=== PATIENT | male | born 1965 | race Caucasian/White ===

== ENCOUNTER 2023-05-03 20:06 | Inpatient (IN) | payer SELFPAY ==
[2023-05-03] VITALS (8 sets, daily range): BP systolic 164–191; BP diastolic 113–127; PULSE 87–100; RESP 17–24; TEMP 36.7–36.8; O2SAT 92–96; BMI 28.7; BMI 31.2
--- NOTE | 2023-05-03 20:28 | ECG_ITS ---
APPROVED REPORT Exam: Resting ECG HR:92 bpm ECG Measurements Heart Rate 92 AXES WV 172 P 55 QRSd 188 QRS 0 QT 424 T 156 QTc 474 Conclusion SINUS RHYTHM LEFT BUNDLE BRANCH BLOCK [120+ ms QRS DURATION, 80+ ms Q/S IN V1/V2, 85+ ms R IN I/aVL/V5/V6] ABNORMAL ECG UNCONFIRMED REPORT Electronically signed by : Evert Colbert MD 05/06/2023 16:50:49
--- NOTE | 2023-05-03 21:26 | XR_ITS ---
PROCEDURE INFORMATION: Exam: XR Chest Exam date and time: 05/03/2023 9:31 PM Age: 57 years old Clinical indication: Shortness of breath; Additional info: Dyspnea TECHNIQUE: Imaging protocol: Radiologic exam of the chest. Views: 1 view. COMPARISON: No relevant prior studies available. FINDINGS: Lungs: Hazy interstitial opacities in both lungs could reflect interstitial edema versus interstitial pneumonia. Granulomatous change. Pleural spaces: Unremarkable. No pleural effusion. No pneumothorax. Heart/Mediastinum: Cardiomegaly. Bones/joints: Unremarkable. IMPRESSION: Interstitial opacities bilaterally could reflect edema versus pneumonia. Correlate clinically.
--- NOTE | 2023-05-03 21:31 | ED_ITS ---
Discharge Plan Disposition Patient Disposition: Admitted Referrals Follow up/Referrals: Provider,Referral, [Primary Care Provider] - See instructions Clinical Impressions Clinical Impression: Heart failure with reduced ejection fraction, Exertional dyspnea, Left bundle branch block (LBBB), Non-ST elevation IL (NSTEMI) Discharge ED Provider: Chiara Lance HPI General Chief Complaint: Shortness of Breath/Dyspnea Stated Complaint: janel, SOA Time Seen by Provider: 05/03/23 21:09 Mode of Arrival: Ambulatory Source of Information: Patient Limitations: No Limitations Description of Symptoms (Recalled from ER Triage Doc. by RN): Pt ambulatory to ED with c/o SOA X4 days. Pt states he started having cold symptoms 1 week ago and has been taking Robitussin at home. Pt states he has not smoked in 8 days due to resp symptoms. Pt also reports he has not been taking his Lisinopril 20mg for 3 weeks now. Pt reports worsening SOA while laying flat. Pt also reports fall 5 days ago. Pt denies chest pain History of Present Illness HPI narrative: Patient is a 57-year-old man who presents today with shortness of breath and w hat he initially described as a cold. However after further questioning he states he does not feel sick he just feels very fatigued and short of breath. Shortness of breath has been ongoing for several months. He does have a history of chronic smoking has a 40+ pack year history of smoking and stop smoking 8 days ago. Additionally he has had significant exertional dyspnea and chest pain especially over the last few weeks. States that any type of exertion specifically sex that he gets extremely short of breath and severe chest pain most recently within the last month this happened where he had chest pain all night long after having sex. States if he had to walk right now he would have c hest pain and is still exertional in the sense that every time he exerts himself right now he has chest pain and it is relieved with any type of rest. Has never had a left heart cath unsure as to whether has been diagnosed with any heart disease in the past. Never has been diagnosed with COPD however he does not frequently go to the hospital. Sleeps on 3 pillows states that shortness of breath has significantly worsened over the last several days. He denies any fevers or chills. Denies any significant increase in sputum production does have some wheezing but that is chronic. No significant increase in lower extremity edema however he does have significant worsening shortness of breath at night. Related Data Allergies Allergy/AdvReac Type Severity Reaction Status Date / Time No Known Allergies Allergy Verified 05/03/23 21:29 [facility] Disclaimer: The information contained in this section may have been updated after the p atient was seen, as this information can be updated by other users. Social History Smoking Status: Former smoker alcohol intake: never current occupational status: other Travel in the last 8 weeks: None ROS Obtained: Yes All systems reviewed & no additional complaints except as documented Physical Exam General General appearance: alert Respiratory Respiratory exam: Present other (Patient does have some expiratory wheezing no respiratory distress no focal adventitious lung sounds oxygen saturations normal on room air) Cardiovascular Cardiovascular exam: Present regular rate, normal rhythm and other (No significa nt lower extremity edema) Abdominal Exam Abdominal exam: Present soft; Absent distention or tenderness Neurological Exam Neurological exam: Present alert HEART Score HEART Score HEART Score assessment performed?: Yes History (anamnesis): Highly suspicious ECG: Non-specific disturbance Age: 45-65 years Risk factors: 1-2 risk factors Troponin: 1-3x normal limit HEART Score: 6 Procedures Miscellaneous Procedure Procedure Performed: Limited cardiac ultrasound Indication: Chest pain Identified structures: The heart was visualized in the parasternal long axis, parastenal short axis, apical four chamber and subxyphiod views. The IVC was visualized in the short axis and long axis at its entry into the right atrium. Findings: There is discordant contraction of the right and left ventricle consistent with a left bundle branch block, there is significant akinesis and hypokinesis of the septum and there is moderate to severely depressed left ventricular ejection fraction based on the point separation and gross visualization, there is no pericardial effusion. Impression: Moderate to severely depressed LVEF discordant systolic contractions consistent with a bundle branch block, no significant right heart strain, no pericardial effusion Images were saved to permanent archive The study was technically adequate CPT: 72790-30 This study was performed by me, and I personally interpreted all images/videos. Based on my clinical judgement, these images were adequate and did not n ecessitate further imaging. Limited lung ultrasound A focused ultrasound exam of the pleural spaces was performed to evaluate for pneumothorax, pulmonary edema, pleural effusion and/or consolidation. The ultrasound was performed with the following indications, as noted in the H&P: Dyspnea Identified structures: Right and left thoracic cavities were examined. Findings: Normal lung sliding bilaterally there are no B-lines throughout no pleural effusions throughout there is no evidence of consolidation throughout Impression: No evidence of pneumothorax pleural effusions B-lines or consolidation Images were saved to permanent archive The study was technically adequate CPT 50771-02 This study was performed by me, and I personally interpreted all images/videos. Based on my clinical judgement, these images were adequate and did not necessitate further imaging. Critical Care Critical Care Time Critical Care Time: Yes Attestation: On 05/03/23, the high probability of a clinically significant, sudden or life threatening deterioration of the following system(s) required my full and direct attention, intervention and personal management. The time I documented below is in addition to time spent performing reported procedures but includes the following listed in this critical care notation. Total Time Total Critical Care Time: 35 Medical Decision Making Yves Inquiry Pt receiving controlled substance: Yes Yves was queried for this patient: No Risks and benefits of using a controlled substance: were not discussed with pt by me Vital Signs Vital Signs: 05/03/23 20:31 Temperature 98.3 F Temperature Source Oral Pulse Rate [Left Radial] 94 H Respiratory Rate 17 Blood Pressure [Right Arm] 191/127 H Blood Pressure Mean [Right Arm] 148 Blood Pressure Source [Right Arm] Automatic Cuff Blood Pressure Position [Right Arm] Sitting 02 Sat by Pulse Oximetry 95 Oxygen Delivery Method Room Air Lab Data Lab results reviewed: Yes I reviewed the patient's lab results. Labs: Lab Results 05/03/23 20:33: WBC 14.3 H, RBC 4.77, Hgb 15.8, Hct 44.0, MCV 92.2, MCH 33.2 H, MCHC 36.0 H, RDW 13.1, Plt Count 282, MPV 9.0, Neut % (Auto) 74.5, Lymph % (Auto) 18.6, [place] % (Auto) 5.2, Eos % (Auto) 0.8, Baso % (Auto) 0.9, Neut # (Auto) 10.7 H, Lymph # (Auto) 2.7, [place] # (Auto) 0.7, Eos # (Auto) 0.1, Baso # (Auto) 0.1, PT 10.4, INR 0.96, APTT 28.9, Sodium 139, Potassium 3.4 L, Chloride 101, Carbon Dioxide 29, Anion Gap 12.4, BUN 10, Creatinine 0.70, Estimated Creat Clear 153, Estimated GFR 117, Est GFR ( Amer) 142, Glucose 108 H, Calcium 8.9, Magnesium 2.0, Total Bilirubin 1.0, AST 37, ALT 25, Alkaline Phosphatase 95, Troponin I 0.04 H, NT-Pro-B Natriuret Pep 4630 H, Total Protein 7.4, Albumin 4.1, Globulin 3.3 H, Albumin/Globulin Ratio 1.2 05/03/23 21:30: SARS-CoV-2 (PCR) Not detected, Influenza A Untype (PCR) Not detected, Influenza Type B (PCR) Not detected 05/03/23 20:33 05/03/23 20:33 Response Orders (Tests/Meds): ORDERS Category Date Time Status CXR --portable [XR chest portable] Stat Exams 05/03/23 21:26 Completed POCUS Point of Care (ER Only) Stat Exams 05/03/23 21:13 Taken BNP [Brain Natriuretic Peptide] Stat Lab 05/03/23 20:33 Completed CBC w/Auto Diff [Complete Blood Count Auto Diff] Stat Lab 05/03/23 20:33 Completed CMP [Comprehensive Metabolic Panel] Stat Lab 05/03/23 20:33 Completed Magnesium Stat Lab 05/03/23 20:33 Completed PT/PTT Stat Lab 05/03/23 20:33 Completed Rapid PCR Covid and Flu A/B Stat Lab 05/03/23 21:30 Completed Trop I [Troponin I] Stat Lab 05/03/23 20:33 Completed Troponin I Q3H Lab 05/04/23 00:30 Ordered Troponin I Q3H Lab 05/04/23 03:30 Ordered ECG initial [place] Stat Y 05/03/23 20:28 Completed MDM Narrative Medical Decision Narrative: Patient is a 57-year-old male presents today with exertional dyspnea and chest pain currently no chest pain this has been ongoing over the last month. Seems as if he may have had an episode about a month ago when he was having sex and has had significant chest pain with exertion since that time. Bedside ultrasound does demonstrate significant depression and his EF and I am concerned he may have had a significant IL several months ago but he may have ongoing critical stenosis given his exertional symptoms. EKG was performed which I personally interpreted which shows a left bundle branch block negative Sgarbossa's criteria however there is discordant ST elevation of 5 mm. O therwise he is in sinus rhythm no other significant conduction abnormalities noted given the fact that patient does not have any ongoing chest pain at the moment will not activate the [employer]. However I am highly suspicious that he has ongoing critical stenotic lesions. I will discuss the case with cardiology after his initial workup is complete. He certainly has some overlap of respiratory symptoms as well and initially came in complaining that he had a cold but this seems to be chronic and cardiac in nature we will hold off on treating him for COPD exacerbation at the moment. Reassessment patient stable still no chest pain Trope mildly elevated this is consistent with an NSTEMI at this point. Chest x-ray performed I personally interpreted shows bibasilar edema. Patient will be admitted for further evaluation treatment cardiology consultation tomorrow likely heart cath.
[2023-05-03 21:40] LABS: Basophils # 0.1 K/mm3 (0-0.2); Basophils % 0.9 % (0.1-2.0); Eosinophils # 0.1 K/mm3 (0.0-0.4); Eosinophils % 0.8 % (0.1-12.0); Hemoglobin 15.8 g/dL (14.1-18.0); Lymphocytes # 2.7 K/mm3 (0.7-4.5); Lymphocytes % 18.6 % (10-50); Mean Corpuscular Hemoglobin 33.2 pg (27.0-31.2); Mean Corpuscular Volume 92.2 fl (80-94); Monocytes # 0.7 K/mm3 (0.1-1.0); Monocytes % 5.2 % (1.7-9.3); Neutrophils # 10.7 K/mm3 (1.8-7.8); Neutrophils % 74.5 % (37.0-80.0); Platelet Count 282 K/mm3 (142-424); Red Blood Count 4.77 M/mm3 (4.60-6.20); Red Cell Distribution Width 13.1 % (11.5-17.5); White Blood Count 14.3 K/mm3 (4.8-10.8)
[2023-05-03 21:42] LABS: Alanine Aminotransferase 25 U/L (12-78); Albumin Level 4.1 g/dl (3.5-5.0); Albumin/Globulin Ratio 1.2 (1.1-1.8); Alkaline Phosphatase 95 U/L (38-126); Anion Gap 12.4 mEq/L (5-15); Aspartate Amino Transferase 37 U/L (17-59); Blood Urea Nitrogen 10 mg/dl (9-20); Calcium 8.9 mg/dl (8.4-10.2); Carbon Dioxide 29 mmol/L (22.0-30.0); Chloride 101 mmol/L (98-107); Creatinine Clearance Estimated 153 mL/min (50-200); Estimated Glomerular Filt Rate 117 ml/min (>60); GFR (African American) 142 ML/MIN (>60); Globulin 3.3 g/dL (1.3-3.2); Glucose 108 mg/dl (74-100); Potassium 3.4 mmoL/L (3.5-5.1); Sodium 139 mmol/L (136-145); Total Protein,Serum 7.4 g/dl (6.3-8.2)
[2023-05-03 21:43] LABS: Coronavirus 19, PCR Not Detected (NotDetected); Influenza A, PCR Not Detected (NotDetected); Influenza B, PCR Not Detected (NotDetected)
[2023-05-03 21:44] LABS: Activated Partial Thrombo Time 28.9 seconds (22.8-30.6); INR 0.96 (0.9-1.1); Prothrombin Time 10.4 seconds (10.1-12.5)
[2023-05-03 21:54] LABS: NT Pro Brain Natriuretic Pep. 4630 pg/mL (0-125); Troponin I 0.04 ng/ml (0.00-0.034)
--- NOTE | 2023-05-03 21:58 | PC.NURSE ---
Pt reports not being able to get his Lisinopril 20mg PO daily prescription filled due to it being and recently moving from [place].
--- NOTE | 2023-05-03 22:35 | P.HP_ITS ---
History of Present Illness *Admission Date: 05/03/23 *Reason for visit:: CP/SOB *History of present illness: This is a 57-year-old man with significant PMHx of HTN, HLD, chronic smoker with greater than 3packs per days who presented today with shortness of breath. Patient initially though was cold. However, he decided to come after he feels sicker snd very fatigued and short of breath, that could not tolerating being flat in bed. Reported that shortness of breath has been ongoing for several months. Additionally he has had chest pain and pressure over the last few weeks, that radiated to his neck, that started after sex and last all night long. After this, he reported exertional dyspnea and CP that release on rest. He denies any fevers or chills. Denies any significant increase in sputum production does have some wheezing but that is chronic. No significant increase in lower extremity edema however he does have significant worsening shortness of breath at night. Admitted for further wotk up and management. [facility] Disclaimer: The information contained in this section may have been updated after the patient was seen, as this information can be updated by other users. Medical History (Updated 05/03/23 @ 23:59 by Ricki Zaman APRN) Hypertension Family History (Updated 05/03/23 @ 23:41 by Deidre Anne RN) Family history of cancer Family history of hypertension Social History (Updated 05/03/23 @ 23:43 by Deidre Anne RN) Smoking Status: Former smoker alcohol intake: never current occupational status: other Travel in the last 8 weeks: None Review of Systems Review of Systems Review of systems:: pertinent systems reviewed and negative unless documented below Meds Home Medications and Allergies Home Medications Medication Instructions Recorded Confirmed Type lisinopril 20 mg tablet 20 mg PO BID 05/03/23 05/03/23 History New Prescriptions to Start Prescriptions: Allergies Allergy/AdvReac Type Severity Reaction Status Date / Time No Known Allergies Allergy Verified 05/03/23 21:29 Exam Data for Last 24 hours Vital signs and Labs for Last 24 Hours: Temp Pulse Resp BP Pulse Ox O2 Del Method 98.3 F 94 H 17 191/127 H 95 Room Air 05/03/23 20:31 05/03/23 20:31 05/03/23 20:31 05/03/23 20:31 05/03/23 20:31 05/03/23 20:31 Laboratory Results - last 24 hr 05/03/23 20:33: WBC 14.3 H, RBC 4.77, Hgb 15.8, Hct 44.0, MCV 92.2, MCH 33.2 H, MCHC 36.0 H, RDW 13.1, Plt Count 282, MPV 9.0, Neut % (Auto) 74.5, Lymph % (Auto) 18.6, [place] % (Auto) 5.2, Eos % (Auto) 0.8, Baso % (Auto) 0.9, Neut # (Auto) 10.7 H, Lymph # (Auto) 2.7, [place] # (Auto) 0.7, Eos # (Auto) 0.1, Baso # (Auto) 0.1, PT 10.4, INR 0.96, APTT 28.9, Sodium 139, Potassium 3.4 L, Chloride 101, Carbon Dioxide 29, Anion Gap 12.4, BUN 10, Creatinine 0.70, Estimated Creat Clear 153, Estimated GFR 117, Est GFR ( Amer) 142, Glucose 108 H, Calcium 8.9, Magnesium 2.0, Total Bilirubin 1.0, AST 37, ALT 25, Alkaline Phosphatase 95, Troponin I 0.04 H, NT-Pro-B Natriuret Pep 4630 H, Total Protein 7.4, Albumin 4.1, Globulin 3.3 H, Albumin/Globulin Ratio 1.2 05/03/23 21:30: SARS-CoV-2 (PCR) Not detected, Influenza A Untype (PCR) Not detected, Influenza Type B (PCR) Not detected I & O for Last 24 hours: Intake & Output 04/30/23 05/01/23 05/02/23 05/03/23 23:59 23:59 23:59 23:59 Weight 90.718 kg Constitutional Constitutional: mild distress and cooperative *Routine HEENT Exam Head: Present normocephalic and atraumatic Eye: Present EOMI, PERRL and normal accommodation ENT: Present mucous membranes moist *Routine Neck Exam Neck: Present supple and full ROM *Routine Respiratory Exam Respiratory: Present prolonged expiratory phase, wheezes, diminished air movement, normal respiratory effort and symmetric chest movement *Routine Cardiovascular Exam Cardiovascular: Present RRR, Normal S1 and Normal S2 *Routine Abdominal Exam Abdominal: Present soft and normoactive bowel sounds; Absent organomegaly *Routine Rectal Exam Rectal:: deferred *Routine Genitalia Exam Genitalia:: deferred *Routine Extremities Exam Extremities: Present full ROM and pulses intact; Absent cyanosis, clubbing or edema *Routine Skin Exam Skin: Present intact, dry, warm and rash *Routine Neurological Exam Neurological: Present alert, oriented X3, normal reflexes, moving all extremities and normal speech Routine Psychiatric Exam Psychiatric: Present normal thought process, cooperative and good judgment H&P: Result Imaging and Cardiology EKG: Status: image reviewed by me and Preliminary report Chest x-ray: Status: image reviewed by me, Preliminary report and final report Assessment and Plan *Assessment and plan (1) Non-ST elevation IN (NSTEMI): Status: Acute Category: Medical Code(s): I21.4 - Non-ST elevation (NSTEMI) myocardial infarction (2) Exertional dyspnea: Status: Acute Category: Medical Code(s): R06.09 - Other forms of dyspnea (3) Left bundle branch block (LBBB): Status: Acute Category: Medical Code(s): I44.7 - Left bundle-branch block, unspecified (4) Hypokalemia: Status: Acute Category: Medical Code(s): E87.6 - Hypokalemia (5) Heart failure with reduced ejection fraction: Status: Acute Category: Medical Code(s): I50.20 - Unspecified systolic (congestive) heart failure (6) Hypertension: Status: Acute Qualifiers: Hypertension type: unspecified Qualified Code(s): I10 - Essential (primary) hypertension Category: Medical Code(s): I10 - Essential (primary) hypertension (7) Very heavy cigarette smoker (40 or more per day): Status: Acute Category: Social Hx Code(s): F17.210 - Nicotine dependence, cigarettes, uncomplicated Plan 57-year-old man with significant PMHx of HTN, HLD, chronic smoker with greater than 3packs per days who presented today with shortness of breath. Patient initially though was cold. However, he decided to come after he feels sicker snd very fatigued and short of breath, that could not tolerating being flat in bed. furthermore started with Chest pain that appears on exertion and release on rest. On arrival patient hemodinamically stable. Hypertensive. denies chest pain. moderate SOB. CXR obtained. Concerning for pulmonary edema vs PNA. WBC slightly elevated. Chemistry slight hypokalemia. elevated troponin. EKG showed left BBB. no acute ischemia. ED provider performed bedside US and reduced EF is suspected. Findings discussed with ER for admission. Plan as follow: -Elevated troponin to rule out non-STEMI, or current acute coronary syndrome: Patient presented with left bundle branch block suspected old infarct. Unknown baseline Admit patient for cardiac telemetry Cardiac consult Serial troponin Monitor for chest pain. Nitro sublingual as needed Oxygen as needed to maximize O2 saturation Aspirin 325 given start the statin -Dyspnea, suspected heart failure with reduced ejection fraction: Also may need PFT for COPD definitive diagnosis: Bedside ultrasound done at the ER Elevated BNP Chest x-ray concerning for pulmonary edema versus pneumonia. Imaging reviewed Will give a one-time Lasix 80 mg IV Will start doxycycline and p.o. 100 mg twice daily Monitor daily CBC Sputum ordered -Hypokalemia. Mild: Replace potassium 40 mEq oral. Monitor for arrhythmia Repeat CMP in the morning Watch for another electrolyte imbalance -Hypertension. Uncontrolled Patient states that he ran out of lisinopril about a month ago. Presented with hypertension Will resume lisinopril 20 mg daily Continue monitor per unit protocol Obtain UA to assess proteinuria -*Current heavy smoker: Patient states he quit 8 days ago. Encourage maintain off smoking. At this time refusing nicotine patch. Ordered for as needed -Lovenox for DVT prophylaxis. Protonix for GI bleed and GERD Full code Rounded on patient after nurse practitioner. Personally examined and interviewed patient. Agree with exam findings and care plan as documented.
[2023-05-04] VITALS (8 sets, daily range): BP systolic 134–157; BP diastolic 80–109; PULSE 70–100; RESP 16–19; TEMP 36.3–36.7; O2SAT 95–98; BMI 30.1
[2023-05-04] MEDS: DOXYCYCLINE HYCL 100 MG TABLET PO ×3 (00:32→22:12)
[2023-05-04] MEDS: LISINOPRIL 20MG TABLET 20 MG PO (00:32)
[2023-05-04] MEDS: POTASSIUM CHLORIDE 20MEQ TAB 40 MEQ PO (00:32)
[2023-05-04] MEDS: ASPIRIN 325MG TABLET 325 MG PO (00:32)
[2023-05-04] MEDS: FUROSEMIDE 100MG/10ML VIAL 80 MG IV (00:33)
[2023-05-04 00:45] LABS: Microscopic, Urine URINE MICROSCOPIC (MICROSCOPIC)
[2023-05-04 00:46] LABS: Appearance,Urine CLEAR (Clear); Blood, Urine Negative (Negative); Color,Urine DARK YELLOW (Yellow); Glucose,Urine (UA) Negative (Negative); Ketones,Urine TRACE (Negative); Leukocyte Esterase,Urine Negative (Negative); Nitrate,Urine Negative (Negative); PH,Urine 6.5 (5.0-8.5); Protein,Urine 1+ (Negative); Specific Gravity, Urine 1.025 (1.005-1.030)
[2023-05-04 00:47] LABS: Troponin I 0.03 ng/ml (0.00-0.034)
[2023-05-04 00:49] LABS: Bilirubin,Urine 1+ (Negative)
[2023-05-04 01:03] LABS: Bacteria,Urine Trace /lpf; Mucus,Urine Trace /lpf; Squamous Epithelial Cell,Urine Occasional #/hpf (0-5); WBC,Urine Occasional #/hpf (0-3)
[2023-05-04 03:55] LABS: Troponin I 0.04 ng/ml (0.00-0.034)
[2023-05-04 07:42] LABS: Alanine Aminotransferase 24 U/L (12-78); Albumin/Globulin Ratio 1.3 (1.1-1.8); Alkaline Phosphatase 89 U/L (38-126); Anion Gap 13.4 mEq/L (5-15); Aspartate Amino Transferase 33 U/L (17-59); Bilirubin,Total 1.1 mg/dl (0.2-1.3); Blood Urea Nitrogen 12 mg/dl (9-20); Calcium 8.7 mg/dl (8.4-10.2); Carbon Dioxide 28 mmol/L (22.0-30.0); Chloride 100 mmol/L (98-107); Creatinine Clearance Estimated 130 mL/min (50-200); Estimated Glomerular Filt Rate 88 ml/min (>60); GFR (African American) 106 ML/MIN (>60); Globulin 3.1 g/dL (1.3-3.2); Glucose 103 mg/dl (74-100); Magnesium 1.8 mg/dl (1.6-2.3); Potassium 3.4 mmoL/L (3.5-5.1); Sodium 138 mmol/L (136-145); Total Protein,Serum 7.1 g/dl (6.3-8.2)
[2023-05-04 07:46] LABS: Basophils # 0.1 K/mm3 (0-0.2); Basophils % 0.9 % (0.1-2.0); Eosinophils # 0.1 K/mm3 (0.0-0.4); Eosinophils % 0.3 % (0.1-12.0); Hematocrit 43.9 % (42.0-52.0); Hemoglobin 15.1 g/dL (14.1-18.0); Lymphocytes # 3.3 K/mm3 (0.7-4.5); Lymphocytes % 22.9 % (10-50); Mean Corpuscular HGB Conc 34.4 g/dL (31.8-35.4); Mean Platelet Volume 8.5 fl (7.4-10.4); Monocytes # 0.7 K/mm3 (0.1-1.0); Monocytes % 4.9 % (1.7-9.3); Neutrophils # 10.3 K/mm3 (1.8-7.8); Platelet Count 291 K/mm3 (142-424); Red Blood Count 4.72 M/mm3 (4.60-6.20); White Blood Count 14.4 K/mm3 (4.8-10.8)
[2023-05-04] MEDS: ENOXAPARIN 40MG/0.4ML SYRINGE 40 MG SQ (09:01)
[2023-05-04] MEDS: ASPIRIN EC 81MG TABLET 81 MG PO (09:01)
[2023-05-04] MEDS: PANTOPRAZOLE 40MG TABLET 40 MG PO (09:02)
[2023-05-04] MEDS: IRBESARTAN 300MG TABLET 300 MG PO (09:02)
--- NOTE | 2023-05-04 09:39 | EXP.ACUTE.PN ---
Subjective *Date: 05/04/23 *Time: 11:08 Interval history: Patient on room air this morning. Feeling her. Denies any chest pain today. Has responded well to diuresis, -700 cc since admission. Afebrile. On bedside during exam Medical Exam Vital signs and Labs for Last 24 Hours: Vital Signs Temp Pulse Pulse Resp BP BP Pulse Ox 05/04/23 08:20 05/04/23 09:20 05/04/23 08:00 97.8 F 88 19 155/97 H 96 05/04/23 07:00 05/04/23 04:00 98.0 F 91 H 18 139/80 95 05/04/23 04:00 80 05/03/23 23:31 100 H 05/04/23 05:00 05/04/23 03:00 05/04/23 01:00 05/03/23 23:43 98.1 F 96 H 24 173/115 H 96 05/03/23 23:00 05/04/23 00:07 05/03/23 22:45 98.2 F 88 24 164/113 H 05/03/23 22:30 89 20 164/113 H 92 L 05/03/23 22:00 95 H 19 168/118 H 94 L 05/03/23 21:30 87 24 172/118 H 95 05/03/23 21:01 95 H 19 178/125 H 94 L 05/03/23 20:31 98.3 F 94 H 17 191/127 H 95 O2 Del Method 05/04/23 08:20 Room Air 05/04/23 09:20 Room Air 05/04/23 08:00 Room Air 05/04/23 07:00 Room Air 05/04/23 04:00 Room Air 05/04/23 04:00 05/03/23 23:31 05/04/23 05:00 Room Air 05/04/23 03:00 Room Air 05/04/23 01:00 Room Air 05/03/23 23:43 Room Air 05/03/23 23:00 Room Air 05/04/23 00:07 Room Air 05/03/23 22:45 Room Air 05/03/23 22:30 05/03/23 22:00 05/03/23 21:30 05/03/23 21:01 05/03/23 20:31 Room Air Intake and Output 05/03/23 05/04/23 05/04/23 23:59 07:59 15:59 Intake Total 220 / 640 420 / 640 Output Total 1325 / 1325 0 / 1325 Balance -1105 / -685 420 / -685 Intake: Intake, Oral Amount 220 / 640 420 / 640 Output: Output, Urine Amount 1325 / 1325 0 / 1325 Other: Number of Voids 0 Weight 98.94 kg 95.51 kg Patient Weight 05/04/23 23:59 Weight 95.51 kg Laboratory Results - last 24 hr 05/03/23 20:33: WBC 14.3 H, RBC 4.77, Hgb 15.8, Hct 44.0, MCV 92.2, MCH 33.2 H, MCHC 36.0 H, RDW 13.1, Plt Count 282, MPV 9.0, Neut % (Auto) 74.5, Lymph % (Auto) 18.6, [place] % (Auto) 5.2, Eos % (Auto) 0.8, Baso % (Auto) 0.9, Neut # (Auto) 10.7 H, Lymph # (Auto) 2.7, [place] # (Auto) 0.7, Eos # (Auto) 0.1, Baso # (Auto) 0.1, PT 10.4, INR 0.96, APTT 28.9, Sodium 139, Potassium 3.4 L, Chloride 101, Carbon Dioxide 29, Anion Gap 12.4, BUN 10, Creatinine 0.70, Estimated Creat Clear 153, Estimated GFR 117, Est GFR ( Amer) 142, Glucose 108 H, Calcium 8.9, Magnesium 2.0, Total Bilirubin 1.0, AST 37, ALT 25, Alkaline Phosphatase 95, Troponin I 0.04 H, NT-Pro-B Natriuret Pep 4630 H, Total Protein 7.4, Albumin 4.1, Globulin 3.3 H, Albumin/Globulin Ratio 1.2 05/03/23 21:30: SARS-CoV-2 (PCR) Not detected, Influenza A Untype (PCR) Not detected, Influenza Type B (PCR) Not detected 05/04/23 00:15: Troponin I 0.03 05/04/23 00:40: Urine Color Dark yellow, Urine Appearance Clear, Urine pH 6.5, Ur Specific [place] 1.025, Urine Protein 1+, Urine Glucose (UA) Negative, Urine Ketones Trace, Urine Blood Negative, Urine Nitrate Negative, Urine Bilirubin 1+ A, Urine Urobilinogen 4.0, Ur Leukocyte Esterase Negative, Urine RBC 3-5, Urine WBC Occasional, Ur Squamous Epith Cells Occasional, Urine Bacteria Trace, Urine Mucus Trace 05/04/23 03:25: Troponin I 0.04 H 05/04/23 06:19: WBC 14.4 H, RBC 4.72, Hgb 15.1, Hct 43.9, MCV 93.0, MCH 32.0 H, MCHC 34.4, RDW 13.0, Plt Count 291, MPV 8.5, Neut % (Auto) 71.0, Lymph % (Auto) 22.9, [place] % (Auto) 4.9, Eos % (Auto) 0.3, Baso % (Auto) 0.9, Neut # (Auto) 10.3 H, Lymph # (Auto) 3.3, [place] # (Auto) 0.7, Eos # (Auto) 0.1, Baso # (Auto) 0.1, Sodium 138, Potassium 3.4 L, Chloride 100, Carbon Dioxide 28, Anion Gap 13.4, BUN 12, Creatinine 0.90 D, Estimated Creat Clear 130, Estimated GFR 88, Est GFR ( Amer) 106 D, Glucose 103 H, Calcium 8.7, Magnesium 1.8, Total Bilirubin 1.1, AST 33, ALT 24, Alkaline Phosphatase 89, Total Protein 7.1, Albumin 4.0, Globulin 3.1, Albumin/Globulin Ratio 1.3 I & O for Labs for Last 24 Hours: Intake & Output 05/01/23 05/02/23 05/03/23 05/04/23 23:59 23:59 23:59 23:59 Intake Total 640 / 640 Output Total 1325 / 1325 Balance -685 / -685 Weight 98.94 kg 95.51 kg Constitutional: Present no acute distress and obese Head: Present atraumatic and normocephalic Respiratory: Present wheezes and normal respiratory effort; Absent rhonchi or crackles Cardiac: Present Regular Rhythm and Tachycardia GI: Present soft and normal bowel sounds; Absent distention or tenderness Extremities: Present normal inspection and full ROM Skin: Present intact; Absent erythema Neuro: Present Grossly Intact, alert, awake, oriented x 3 and moves all extremities Assessment and Plan *Assessment and plan (1) Non-ST elevation [place] (NSTEMI): Status: Acute Category: Medical Code(s): I21.4 - Non-ST elevation (NSTEMI) myocardial infarction (2) Exertional dyspnea: Status: Acute Category: Medical Code(s): R06.09 - Other forms of dyspnea (3) Left bundle branch block (LBBB): Status: Acute Category: Medical Code(s): I44.7 - Left bundle-branch block, unspecified (4) Hypokalemia: Status: Acute Category: Medical Code(s): E87.6 - Hypokalemia (5) Heart failure with reduced ejection fraction: Status: Acute Category: Medical Code(s): I50.20 - Unspecified systolic (congestive) heart failure (6) Hypertension: Status: Acute Qualifiers: Hypertension type: unspecified Qualified Code(s): I10 - Essential (primary) hypertension Category: Medical Code(s): I10 - Essential (primary) hypertension (7) Very heavy cigarette smoker (40 or more per day): Status: Acute Category: Social Hx Code(s): F17.210 - Nicotine dependence, cigarettes, uncomplicated Plan 57-year-old man with significant PMHx of HTN, HLD, chronic smoker with greater than 3packs per days who presented today with shortness of breath. Patient initially though was cold. However, he decided to come after he feels sicker snd very fatigued and short of breath, that could not tolerating being flat in bed. furthermore started with Chest pain that appears on exertion and release on rest. On arrival patient hemodinamically stable. Hypertensive. denies chest pain. moderate SOB. CXR obtained. Concerning for pulmonary edema vs PNA. WBC slightly elevated. Chemistry slight hypokalemia. elevated troponin. EKG showed left BBB. no acute ischemia. ED provider performed bedside US and reduced EF is suspected. Findings discussed with ER for admission. Feeling somewhat better today. Continues to require inpatient management. Cardiology consult, will see patient in the morning. Problems addressed as follows: - non-STEMI - Hypertension -Hyperlipidemia Increase irbesartan to 300 mg daily, will add low-dose carvedilol at 6.25 mg twice daily. Cardiology consulted, appreciate their recommendations. Will be n.p.o. at midnight in anticipation of possible cath tomorrow Echocardiogram ordered, will be obtained in the morning patient presented with left bundle branch block suspected old infarct. Unknown baseline Continue telemetry Continue aspirin 81 mg daily, Lipitor 40 mg nightly. Diurese again with Lasix 40 mg IV x 1. Lipid panel ordered for the morning -Dyspnea, suspected heart failure with reduced ejection fraction versus COPD exacerbation Chest x-ray concerning for pulmonary edema versus pneumonia. Imaging reviewed -700 cc with diuresis, will diurese with Lasix 40 mg IV x 1 Continue doxycycline 100 mg twice daily DuoNebs every 6 hours as needed -Hypokalemia. Mild: Potassium 3.4 this morning. Magnesium 1.8. Will monitor with labs in the morning. CBC, CMP, magnesium ordered for tomorrow morning -*Current heavy smoker: Patient states he quit 8 days ago. Encourage maintain off smoking. Nicotine patch as needed but he is refusing at this time. Lovenox for DVT prophylaxis. Protonix for GI bleed and GERD Full code Cardiac diet, n.p.o. at midnight
[2023-05-04] MEDS: FUROSEMIDE 40MG/4ML VIAL 40 MG IV (12:13)
[2023-05-04] MEDS: CARVEDILOL 6.25MG TABLET 6.25 MG PO ×2 (12:13→22:11)
--- NOTE | 2023-05-04 17:50 | PC.NURSE ---
VS stable after blood pressure medication. Patient remained on room air. No chest pain reported. NSR with BBB noted on monitor. No other changes noted
[2023-05-04] MEDS: ATORVASTATIN 40MG TABLET 40 MG PO (22:11)
[2023-05-05] VITALS (28 sets, daily range): BP systolic 110–161; BP diastolic 62–110; PULSE 69–91; RESP 16–19; TEMP 36.4–36.9; O2SAT 93–98; BMI 31.0
[2023-05-05 06:24] LABS: Basophils # 0.1 K/mm3 (0-0.2); Basophils % 0.7 % (0.1-2.0); Eosinophils # 0.2 K/mm3 (0.0-0.4); Eosinophils % 1.5 % (0.1-12.0); Hemoglobin 14.7 g/dL (14.1-18.0); Lymphocytes # 2.7 K/mm3 (0.7-4.5); Lymphocytes % 23.2 % (10-50); Mean Corpuscular HGB Conc 33.4 g/dL (31.8-35.4); Mean Corpuscular Hemoglobin 31.1 pg (27.0-31.2); Mean Corpuscular Volume 93.1 fl (80-94); Monocytes # 0.6 K/mm3 (0.1-1.0); Monocytes % 4.9 % (1.7-9.3); Neutrophils % 69.7 % (37.0-80.0); Platelet Count 322 K/mm3 (142-424); Red Blood Count 4.73 M/mm3 (4.60-6.20); White Blood Count 11.5 K/mm3 (4.8-10.8)
[2023-05-05 06:39] LABS: Alanine Aminotransferase 20 U/L (12-78); Albumin Level 3.8 g/dl (3.5-5.0); Albumin/Globulin Ratio 1.3 (1.1-1.8); Alkaline Phosphatase 78 U/L (38-126); Anion Gap 8.5 mEq/L (5-15); Aspartate Amino Transferase 27 U/L (17-59); Bilirubin,Total 0.7 mg/dl (0.2-1.3); Blood Urea Nitrogen 18 mg/dl (9-20); Calcium 8.9 mg/dl (8.4-10.2); Carbon Dioxide 33 mmol/L (22.0-30.0); Chloride 102 mmol/L (98-107); Chol/HDL Ratio 11.1 (1-3.5); Cholesterol 199 mg/dl (140-200); Creatinine Clearance Estimated 129 mL/min (50-200); Estimated Glomerular Filt Rate 88 ml/min (>60); GFR (African American) 106 ML/MIN (>60); Glucose 111 mg/dl (74-100); HDL Cholesterol 18 mg/dl (40-60); Magnesium 2.1 mg/dl (1.6-2.3); Potassium 3.5 mmoL/L (3.5-5.1); Sodium 140 mmol/L (136-145); Total Protein,Serum 6.8 g/dl (6.3-8.2); Triglycerides 165 mg/dl (30-150); VLDL Cholesterol 33 mg/dL (0-40)
[2023-05-05 07:08] LABS: Thyroid Stimulating Hormone 1.36 uIU/mL (0.465-4.68)
--- NOTE | 2023-05-05 08:17 | PC.NURSE ---
Home Medications Jaime Bustos Medication Instructions Recorded Confirmed lisinopril 20 mg tablet 20 mg PO BID Hypertension 05/03/23 05/04/23
--- NOTE | 2023-05-05 08:34 | EXP.CARD.CON ---
History of Present Illness History of Present Illness Consult date: 05/05/23 Requesting physician: Arjun Mohamud Consult reason: chest pain and congestive heart failure Chief complaint: SOA, chest pain Additional Medical History:: 1. Smoker A. 2 packs/day for greater than 30 years, recently quit 04/2023 2. Left bundle branch block, chronicity unknown but suspected chronic 3. New diagnosis of HFrEF this admission, 04/2023 4. History of hypertension 5. History of hyperlipidemia, improved with weight loss History of present illness: 57-year-old white male presented to the emergency department due to inability to lie flat due to shortness of breath/smothering feeling onset over the last 2 weeks during which time he felt he had a cold. Patient denies any prior cardiac history but has a history of an abnormal EKG many years ago when he was living in [place]. Workup this admission shows an EKG with left bundle branch block, mild elevated troponins at 0.04 with elevated BNP at 4630, chest x-ray with suspected CHF versus pneumonia and elevated LDL at 137. Preliminary echocardiogram this morning shows an ejection fraction of around 25%. Symptomatic improvement obtained with diuresis. Hypertension has improved on blood pressure medication institution (he was out of his lisinopril for about a month prior to admission). Cardiology consulted for evaluation and recommendations. [facility] Disclaimer: The information contained in this section may have been updated after the patient was seen, as this information can be updated by other users. Medical History (Updated 05/03/23 @ 23:59 by Ricki Zaman APRN) Hypertension Family History (Updated 05/03/23 @ 23:41 by Deidre Anne RN) Family history of cancer Family history of hypertension Social History (Updated 05/03/23 @ 23:43 by Deidre Anne RN) Smoking Status: Former smoker alcohol intake: never current occupational status: other Travel in the last 8 weeks: None Exam Data for Last 24 hours Vital signs and Labs for Last 24 Hours: Temp Pulse Resp BP Pulse Ox O2 Del Method 98.3 F 74 18 161/110 H 97 Room Air 05/05/23 07:41 05/05/23 07:41 05/05/23 07:41 05/05/23 07:41 05/05/23 07:41 05/05/23 07:41 Laboratory Results - last 24 hr 05/05/23 05:40: WBC 11.5 H, RBC 4.73, Hgb 14.7, Hct 44.0, MCV 93.1, MCH 31.1, MCHC 33.4, RDW 13.0, Plt Count 322, MPV 8.0, Neut % (Auto) 69.7, Lymph % (Auto) 23.2, [place] % (Auto) 4.9, Eos % (Auto) 1.5, Baso % (Auto) 0.7, Neut # (Auto) 8.0 H, Lymph # (Auto) 2.7, [place] # (Auto) 0.6, Eos # (Auto) 0.2, Baso # (Auto) 0.1, Sodium 140, Potassium 3.5, Chloride 102, Carbon Dioxide 33 H, Anion Gap 8.5, BUN 18 D, Creatinine 0.90, Estimated Creat Clear 129, Estimated GFR 88, Est GFR ( Amer) 106, Glucose 111 H, Calcium 8.9, Magnesium 2.1 D, Total Bilirubin 0.7, AST 27, ALT 20, Alkaline Phosphatase 78, Total Protein 6.8, Albumin 3.8, Globulin 3.0, Albumin/Globulin Ratio 1.3, Triglycerides 165 H, Cholesterol 199, LDL Cholesterol Direct 137.70 H, VLDL Cholesterol 33, HDL Cholesterol 18 L, Cholesterol/HDL Ratio 11.1 H, TSH 1.36 I & O for Last 24 hours: Intake & Output 05/02/23 05/03/23 05/04/23 05/05/23 11:59 11:59 11:59 11:59 Intake Total 640 / 640 960 / 960 Output Total 1325 / 1325 2450 / 2450 Balance -685 / -685 -1490 / -1490 Weight 210 lb 9 oz 217 lb Constitutional Constitutional: no acute distress *Routine Respiratory Exam Respiratory: Present wheezes; Absent rhonchi *Routine Cardiovascular Exam Cardiovascular: Present RRR and gallop; Absent murmur or rubs *Routine Extremities Exam Extremities: Absent edema *Routine Neurological Exam Neurological: Present alert, oriented X3 and CN II-XII intact Meds Home Medications and Allergies Home Medications Medication Instructions Recorded Confirmed Type lisinopril 20 mg tablet 20 mg PO BID Hypertension 05/03/23 05/04/23 History New Prescriptions to Start Prescriptions: Allergies Allergy/AdvReac Type Severity Reaction Status Date / Time No Known Allergies Allergy Verified 05/03/23 21:29 Assessment and Plan *Assessment and plan (1) Heart failure with reduced ejection fraction: Status: Acute Category: Medical Code(s): I50.20 - Unspecified systolic (congestive) heart failure (2) Hypertension: Status: Acute Qualifiers: Hypertension type: unspecified Qualified Code(s): I10 - Essential (primary) hypertension Category: Medical Code(s): I10 - Essential (primary) hypertension (3) Very heavy cigarette smoker (40 or more per day): Status: Acute Category: Social Hx Code(s): F17.210 - Nicotine dependence, cigarettes, uncomplicated (4) Exertional dyspnea: Status: Acute Category: Medical Code(s): R06.09 - Other forms of dyspnea (5) Left bundle branch block (LBBB): Status: Acute Category: Medical Code(s): I44.7 - Left bundle-branch block, unspecified (6) Non-ST elevation [place] (NSTEMI): Status: Acute Category: Medical Code(s): I21.4 - Non-ST elevation (NSTEMI) myocardial infarction Plan 1. HFrEF -Patient has been started on ARB and carvedilol therapy along with diuretics as needed -Preliminary echocardiogram 25% -Ischemia evaluation today with left heart catheterization 2. Left bundle branch block, chronicity unknown -No history of syncope noted 3. Elevated troponin/non-STEMI, likely secondary to CHF -Continue aspirin 81 mg daily along with carvedilol therapy -Currently asymptomatic 4. Hypertension -Improved on combination of ARB and carvedilol 5. Hyperlipidemia -Started on statin therapy 6. Abnormal chest x-ray -Possible infiltrate for which she is on doxycycline Further recommendations to follow pending results of left heart catheterization Discussed potential for LifeVest upon discharge. [facility] shows: ANGIOGRAPHIC RESULTS The left main artery Normal The left anterior descending artery Has proximal and mid vessel diffuse 10% luminal regularities The circumflex artery Massively large dominant with mild diffuse 10% luminal irregularities The right coronary artery Nondominant normal The SANDERS ventriculogram reveals Dilated ventricle globally hypokinetic estimate ejection fraction 20% The left ventricular end-diastolic pressure 30 mmHg IMPRESSION Mild luminal irregularities all of which are nonflow limiting Dilated ventricle with severely reduced ejection fraction Elevated LVEDP PLAN 1. Consider CMR 2. Standard therapy for systolic heart failure 3. LifeVest if patient is a candidate Electronically signed by : Al Torre MD 05/05/2023 12:53:56 Switching ARB to entresto and adding Jardiance. Will send request for LifeVest. Start oral lasix and aldactone in AM. Plan home in AM or sooner if lifevest approved.
[2023-05-05 08:36] LABS: Hemoglobin A1C 5.7 % (4.0-6.0)
--- NOTE | 2023-05-05 08:43 | IR_ITS ---
APPROVED REPORT Patient Location: Inpatient PROCEDURES Left heart catheterization Left ventriculogram Selective coronary angiogram INDICATION Acute non-ST elevation myocardial infarction, Systolic congestive heart failure ejection fraction 20% Informed consent was obtained prior to the procedure. COMPLICATIONS None Estimated Blood Loss: Less than 10 mls TECHNIQUE One percent lidocaine used to anesthetize the right anterior aspect of the wrist. The right radial artery was accessed via the Seldinger technique. A 6 [place] sheath was placed in the right radial artery. 2.5 mg of Verapamil, 800 mcg of nitroglycerin, 1mg Lidocaine and 5000 U Heparin were given through the arterial sheath. The papa catheter was also used to perform left heart catheterization, left ventriculogram and selective coronary angiogram. At the end of the procedure the sheath was removed good hemostasis was achieved using Traclet band, patient was transferred to the postop holding area in stable condition. ANGIOGRAPHIC RESULTS The left main artery Normal The left anterior descending artery Has proximal and mid vessel diffuse 10% luminal regularities The circumflex artery Massively large dominant with mild diffuse 10% luminal irregularities The right coronary artery Nondominant normal The SANDERS ventriculogram reveals Dilated ventricle globally hypokinetic estimate ejection fraction 20% The left ventricular end-diastolic pressure 30 mmHg IMPRESSION Mild luminal irregularities all of which are nonflow limiting Dilated ventricle with severely reduced ejection fraction Elevated LVEDP PLAN 1. Consider CMR 2. Standard therapy for systolic heart failure 3. LifeVest if patient is a candidate Electronically signed by : Al Torre MD 05/05/2023 12:53:56
[2023-05-05] MEDS: PANTOPRAZOLE 40MG TABLET 40 MG PO (08:59)
[2023-05-05] MEDS: ASPIRIN EC 81MG TABLET 81 MG PO (08:59)
[2023-05-05] MEDS: IRBESARTAN 300MG TABLET 300 MG PO (08:59)
[2023-05-05] MEDS: CARVEDILOL 6.25MG TABLET 6.25 MG PO ×2 (08:59→21:48)
[2023-05-05] MEDS: DOXYCYCLINE HYCL 100 MG TABLET PO ×2 (09:03→21:48)
--- NOTE | 2023-05-05 12:34 | PC.NURSE ---
Pt down to labor and delivery nurse.
[2023-05-05] MEDS: VERAPAMIL 2.5MG/ML 2ML VIAL 2.5 MG IV (12:35)
[2023-05-05] MEDS: NITROGLYCERIN 800MCG/8ML SYR (CATH LAB) 800 MCG IA (12:35)
[2023-05-05] MEDS: HEPARIN 1,000 UNITS/ML 10ML VIAL (CATH LAB) 10000 UNIT IV (12:35)
[2023-05-05] MEDS: HEPARIN 1,000 UNITS/500ML NS (CATH LAB) 3000 UNIT IV (12:35)
[2023-05-05] MEDS: diphenhydrAMINE 50MG/ML VIAL 50 MG IV (12:35)
[2023-05-05] MEDS: LIDOCAINE 1% 10ML MDV 20 ML IJ (12:35)
[2023-05-05] MEDS: MIDAZOLAM HCL 1MG/1ML 5ML VIAL 1 MG IV (12:36)
[2023-05-05] MEDS: FENTANYL 100MCG/2ML VIAL 25 MCG IV (12:36)
[2023-05-05] MEDS: 0.9 % SODIUM CHLORIDE 500 ML 25 ML IV (12:36)
--- NOTE | 2023-05-05 13:36 | PC.NURSE ---
Pt. back to the floor.
[2023-05-05] MEDS: IOPAMIDOL-370 (76%);100ML BOTTLE 60 ML IV (13:57)
--- NOTE | 2023-05-05 15:36 | CARE MANAGER ---
I was contacted by Diana at [facility]. She sent over the PAP application. The patient's completed this and I faxed it to [facility]. She also emailed her pay stub to [facility].
--- NOTE | 2023-05-05 15:55 | PC.NURSE ---
Cath done to [facility] wrist with brace in place. possible d/c home today, zero stents placed.
--- NOTE | 2023-05-05 16:35 | P.PN_ITS ---
Subjective *Date: 05/05/23 *Time: 16:35 Interval history: Denies chest pain or shortness of breath this morning. Overall feeling better after diuresis yesterday. Blood pressure better controlled today. N.p.o. awaiting heart cath. Medical Exam Vital signs and Labs for Last 24 Hours: Vital Signs Temp Pulse Pulse Resp BP Pulse Ox O2 Del Method 05/05/23 16:02 Room Air 05/05/23 14:15 97.9 F 84 17 144/91 H 96 Room Air 05/05/23 14:00 97.9 F 78 17 130/89 96 Room Air 05/05/23 13:45 97.9 F 72 17 132/88 96 Room Air 05/05/23 14:20 Room Air 05/05/23 12:00 80 05/05/23 13:30 97.9 F 74 17 137/87 96 Room Air 05/05/23 13:15 97.9 F 81 17 120/81 94 L Room Air 05/05/23 13:15 72 19 120/81 98 05/05/23 13:10 70 18 126/88 95 05/05/23 13:08 69 05/05/23 13:05 74 19 126/86 93 L Room Air 05/05/23 13:02 77 19 133/90 94 L Room Air 05/05/23 11:50 Room Air 05/05/23 11:08 98.2 F 77 17 158/108 H 94 L Room Air 05/05/23 08:00 90 05/05/23 09:43 Room Air 05/05/23 09:00 Room Air 05/05/23 08:00 97 Room Air 05/05/23 07:41 98.3 F 74 18 161/110 H 97 Room Air 05/05/23 07:00 Room Air 05/05/23 05:00 Room Air 05/05/23 04:20 73 05/05/23 04:00 98.2 F 91 H 18 145/97 H 94 L Room Air 05/05/23 00:30 76 05/05/23 03:00 Room Air 05/05/23 00:00 98.4 F 74 18 152/97 H 97 Nasal Cannula 05/05/23 01:00 Room Air 05/04/23 23:00 Room Air 05/04/23 21:00 Room Air 05/04/23 20:00 97.4 F L 79 18 134/109 H 98 Room Air 05/04/23 20:00 100 H 05/04/23 22:16 Room Air 05/04/23 22:13 78 144/98 H 05/04/23 18:45 Room Air 05/04/23 17:05 Room Air Intake and Output 05/05/23 05/05/23 05/05/23 07:59 15:59 23:59 Output Total 0 375 375 / 375 Balance 0 / -375 -375 / -375 Output: Output, Urine Amount 0 / 375 375 / 375 Other: Number of Unmeasured Voids 2 Weight 98.43 kg 98.43 kg Patient Weight 05/05/23 23:59 Weight 98.43 kg Laboratory Results - last 24 hr 05/05/23 05:40: WBC 11.5 H, RBC 4.73, Hgb 14.7, Hct 44.0, MCV 93.1, MCH 31.1, MCHC 33.4, RDW 13.0, Plt Count 322, MPV 8.0, Neut % (Auto) 69.7, Lymph % (Auto) 23.2, [place] % (Auto) 4.9, Eos % (Auto) 1.5, Baso % (Auto) 0.7, Neut # (Auto) 8.0 H, Lymph # (Auto) 2.7, [place] # (Auto) 0.6, Eos # (Auto) 0.2, Baso # (Auto) 0.1, Sodium 140, Potassium 3.5, Chloride 102, Carbon Dioxide 33 H, Anion Gap 8.5, BUN 18 D, Creatinine 0.90, Estimated Creat Clear 129, Estimated GFR 88, Est GFR ( Amer) 106, Glucose 111 H, Hemoglobin A1c 5.7, Calcium 8.9, Magnesium 2.1 D, Total Bilirubin 0.7, AST 27, ALT 20, Alkaline Phosphatase 78, Total Protein 6.8, Albumin 3.8, Globulin 3.0, Albumin/Globulin Ratio 1.3, Triglycerides 165 H, Cholesterol 199, LDL Cholesterol Direct 137.70 H, VLDL Cholesterol 33, HDL Cholesterol 18 L, Cholesterol/HDL Ratio 11.1 H, TSH 1.36 I & O for Labs for Last 24 Hours: Intake & Output 05/02/23 05/03/23 05/04/23 05/05/23 23:59 23:59 23:59 23:59 Intake Total 1600 / 1600 Output Total 3775 / 3775 375 / 375 Balance -2175 / -2175 -375 / -375 Weight 98.94 kg 95.51 kg 98.43 kg Constitutional: Present no acute distress and obese Head: Present atraumatic and normocephalic Respiratory: Present wheezes and normal respiratory effort; Absent rhonchi or crackles Cardiac: Present Regular Rhythm and Tachycardia GI: Present soft and normal bowel sounds; Absent distention or tenderness Extremities: Present normal inspection and full ROM Skin: Present intact; Absent erythema Neuro: Present Grossly Intact, alert, awake, oriented x 3 and moves all extremities Assessment and Plan *Assessment and plan (1) Non-ST elevation [place] (NSTEMI): Status: Acute Category: Medical Code(s): I21.4 - Non-ST elevation (NSTEMI) myocardial infarction (2) Heart failure with reduced ejection fraction: Status: Acute Category: Medical Code(s): I50.20 - Unspecified systolic (congestive) heart failure (3) Left bundle branch block (LBBB): Status: Acute Category: Medical Code(s): I44.7 - Left bundle-branch block, unspecified (4) Hypokalemia: Status: Acute Category: Medical Code(s): E87.6 - Hypokalemia (5) Hypertension: Status: Acute Qualifiers: Hypertension type: unspecified Qualified Code(s): I10 - Essential (primary) hypertension Category: Medical Code(s): I10 - Essential (primary) hypertension (6) Very heavy cigarette smoker (40 or more per day): Status: Acute Category: Social Hx Code(s): F17.210 - Nicotine dependence, cigarettes, uncomplicated Plan 57-year-old man with significant PMHx of HTN, HLD, chronic smoker with greater than 3packs per day who presented today with shortness of breath. Patient initially though was cold. However, he decided to come after he feels sicker and very fatigued and short of breath, that could not tolerating being flat in bed. furthermore started with Chest pain that appears on exertion and release on rest. On arrival patient hemodinamically stable. Hypertensive. denies chest pain. moderate SOB. CXR obtained. Concerning for pulmonary edema vs PNA. WBC slightly elevated. Chemistry slight hypokalemia. elevated troponin. EKG showed left BBB. no acute ischemia. ED provider performed bedside US and reduced EF is suspected. Findings discussed with ER for admission. Denies any chest pain, feeling better today. Continues to require inpatient management. Problems addressed as follows: - non-STEMI - Hypertension -Hyperlipidemia Cardiology consulted, going for left heart cath today. Echocardiogram obtained preliminarily showing reduced ejection fraction less than 25%. Will adjust regimen for goal-directed therapy. Initiate Entresto 24/26 mg twice daily, continue carvedilol 6.25 mg twice daily. Continue aspirin 81 mg daily, Lipitor 40 mg nightly. Continuous telemetry. Will need LifeVest prior to discharge home given reduced ejection fraction LDL elevated at 137 -Dyspnea, suspected heart failure with reduced ejection fraction versus COPD exacerbation Responded well to diuresis. Dyspnea improved. Continue doxycycline 100 mg twice daily for 5 days Initiate Advair 250 twice daily DuoNebs every 6 hours as needed White cell count normal today at 11 -Hypokalemia. Mild: Potassium and magnesium in normal range today. Will monitor with labs in the morning. CBC, CMP, magnesium ordered for tomorrow morning - Current heavy smoker: Patient states he quit just over a week ago. Encourage maintain off smoking. Nicotine patch as needed but he is refusing at this time. Lovenox for DVT prophylaxis. Protonix for GI bleed and GERD Full code Cardiac diet
--- NOTE | 2023-05-05 16:52 | PC.NURSE ---
Right wrist non adherent dressing placed and also tegaderm.
[2023-05-05] MEDS: FLUTICASONE/SALMETEROL 250/50MCG DISKUS 1 PUFF IH (18:21)
[2023-05-05] MEDS: SACUBITRIL/VALSARTAN 24-26MG TABLET 1 EACH PO (21:48)
[2023-05-05] MEDS: ATORVASTATIN 40MG TABLET 40 MG PO (21:48)
--- NOTE | 2023-05-05 22:33 | CA_ITS ---
APPROVED REPORT EXAM: Comprehensive 2D, Doppler, and color-flow Echocardiogram Chicken Dresser: Marci Greenwood RDCS Ht: 5 ft 10 in Wt: 217lbs BSA: 2.16 BP: 191/127 mmHg Indications: Chest pain, dyspnea, myocardial injury M-Mode Dimensions RVDd 1.48 cm (0.9-2.6) LA Diam 4.13 cm (1.9-4.0) LVDd 5.51 cm (3.5-5.7) LVDs 5.01 cm (3.5-5.7) IVSd 1.48 cm (0.6-1.1) PWd 1.53 cm (0.6-1.1) EF (Teich) 19.70% FS 9.10% EDV (Teich) 148.00 mL ESV (Teich) 118.80 mL LV Diastology E Decel Time 137 (160-240 msec) E/A Ratio 0.6 Mitral Valve MV E Max Aquiles. 37.0 (40-130 cm/s) MV A Velocity 60.0 (40-130 cm/s) E/A Ratio 0.62 MV PHT 40.0 ms Left Ventricle The left ventricle is severely dilated (LVEDVi 133 ml/m2). Left ventricular systolic function is severely decreased. There is normal left ventricular wall thickness. There is severe global hypokinesis present. There is near akinesis of the septal and anteroseptal LV deras. The septum is asynchronous. Grade 1 diastolic dysfunction is present. Right Ventricle The right ventricle is normal size. Right ventricle is mildly hypokinetic. Atria The left atrium size is normal. The right atrium size is normal. There is no Doppler evidence of interatrial shunt. Aortic Valve The aortic valve is mildly thickened. There is no aortic valvular stenosis. No aortic regurgitation is present. Mitral Valve The mitral valve leaflets are mildly thickened. No evidence of mitral valve stenosis. Mild mitral valve regurgitation. Tricuspid Valve The tricuspid valve leaflets are thin and pliable. Trace tricuspid regurgitation. There is insufficient TR jet to estimate RVSP. Pulmonic Valve The pulmonary valve is normal in structure. Please pulmonic regurgitation. Great Vessels The aortic root is normal in size. The ascending aorta is not well-visualized. IVC is normal in size and collapses >50% with inspiration. Pericardium There is no pericardial effusion. Other Information Study Quality: Fair Conclusion Severely reduced LV systolic function (LVEF 15%). Near akinesis of the septal and anteroseptal LV deras. The septum is asynchronous. Normal RV size with mildly reduced RV function. Mild MR. Electronically signed by : Yani Gaspar MD 05/05/2023 14:08:54
[2023-05-06] VITALS: BP 130/72; PULSE 80; RESP 16; TEMP 36.7; O2SAT 96
[2023-05-06 04:00] VITALS: BP 130/82; PULSE 70; PULSE 75; RESP 18; TEMP 36.6; O2SAT 98; BMI 31.0
[2023-05-06] MEDS: FLUTICASONE/SALMETEROL 250/50MCG DISKUS 1 PUFF IH (06:08)
[2023-05-06 06:40] LABS: Basophils % 0.3 % (0.1-2.0); Eosinophils # 0.2 K/mm3 (0.0-0.4); Eosinophils % 1.9 % (0.1-12.0); Hematocrit 44.4 % (42.0-52.0); Lymphocytes # 2.6 K/mm3 (0.7-4.5); Lymphocytes % 23.8 % (10-50); Mean Corpuscular HGB Conc 33.9 g/dL (31.8-35.4); Mean Corpuscular Hemoglobin 31.4 pg (27.0-31.2); Mean Corpuscular Volume 92.8 fl (80-94); Mean Platelet Volume 8.3 fl (7.4-10.4); Monocytes # 0.6 K/mm3 (0.1-1.0); Monocytes % 5.1 % (1.7-9.3); Neutrophils # 7.5 K/mm3 (1.8-7.8); Neutrophils % 68.9 % (37.0-80.0); Platelet Count 425 K/mm3 (142-424); Red Blood Count 4.79 M/mm3 (4.60-6.20); Red Cell Distribution Width 13.1 % (11.5-17.5); White Blood Count 10.9 K/mm3 (4.8-10.8)
[2023-05-06 06:44] LABS: Alanine Aminotransferase 24 U/L (12-78); Albumin Level 3.8 g/dl (3.5-5.0); Albumin/Globulin Ratio 1.2 (1.1-1.8); Alkaline Phosphatase 75 U/L (38-126); Aspartate Amino Transferase 25 U/L (17-59); Bilirubin,Total 0.5 mg/dl (0.2-1.3); Blood Urea Nitrogen 19 mg/dl (9-20); Calcium 8.9 mg/dl (8.4-10.2); Carbon Dioxide 25 mmol/L (22.0-30.0); Chloride 108 mmol/L (98-107); Creatinine Clearance Estimated 145 mL/min (50-200); Estimated Glomerular Filt Rate 100 ml/min (>60); GFR (African American) 121 ML/MIN (>60); Globulin 3.2 g/dL (1.3-3.2); Glucose 144 mg/dl (74-100); Sodium 140 mmol/L (136-145)
[2023-05-06 07:04] LABS: Magnesium 2.1 mg/dl (1.6-2.3)
[2023-05-06 07:35] VITALS: BP 153/96; PULSE 76; RESP 18; TEMP 36.8; O2SAT 98
[2023-05-06 08:00] VITALS: PULSE 70
[2023-05-06] MEDS: DOXYCYCLINE HYCL 100 MG TABLET PO (08:08)
[2023-05-06] MEDS: EMPAGLIFLOZIN 10MG TABLET 10 MG PO (08:08)
[2023-05-06] MEDS: ASPIRIN EC 81MG TABLET 81 MG PO (08:08)
[2023-05-06] MEDS: CARVEDILOL 6.25MG TABLET 6.25 MG PO (08:08)
[2023-05-06] MEDS: FUROSEMIDE 40 MG TABLET PO (08:08)
[2023-05-06] MEDS: SPIRONOLACTONE 25MG TABLET 25 MG PO (08:08)
[2023-05-06] MEDS: ENOXAPARIN 40MG/0.4ML SYRINGE 40 MG SQ (08:09)
[2023-05-06] MEDS: SACUBITRIL/VALSARTAN 24-26MG TABLET 1 EACH PO (08:09)
[2023-05-06] MEDS: PANTOPRAZOLE 40MG TABLET 40 MG PO (08:09)
--- NOTE | 2023-05-06 09:05 | EXP.CARD.PN ---
Subjective Subjective Date: 05/06/23 Time: 09:05 Principal diagnosis: CHF, LBBB, NSTEMI Interval history: 57-year-old white male sitting in bed in no acute distress. Denies any complaints at this time. Left heart cath results showed nonischemic cardiomyopathy. ZOLL LifeVest has been approved and is pending placement today. Exam Data for Last 24 hours Vital signs and Labs for Last 24 Hours: Temp Pulse Resp BP Pulse Ox O2 Del Method 98.2 F 70 18 153/96 H 98 Room Air 05/06/23 07:35 05/06/23 08:00 05/06/23 07:35 05/06/23 07:35 05/06/23 07:35 05/06/23 07:35 Laboratory Results - last 24 hr 05/06/23 06:05: WBC 10.9 H, RBC 4.79, Hgb 15.0, Hct 44.4, MCV 92.8, MCH 31.4 H, MCHC 33.9, RDW 13.1, Plt Count 425 H D, MPV 8.3, Neut % (Auto) 68.9, Lymph % (Auto) 23.8, Hanson % (Auto) 5.1, Eos % (Auto) 1.9, Baso % (Auto) 0.3, Neut # (Auto) 7.5, Lymph # (Auto) 2.6, Hanson # (Auto) 0.6, Eos # (Auto) 0.2, Baso # (Auto) 0.0, Sodium 140, Potassium 4.0, Chloride 108 H, Carbon Dioxide 25, Anion Gap 11.0, BUN 19, Creatinine 0.80, Estimated Creat Clear 145, Estimated GFR 100, Est GFR ( Amer) 121, Glucose 144 H, Calcium 8.9, Magnesium 2.1, Total Bilirubin 0.5, AST 25, ALT 24, Alkaline Phosphatase 75, Total Protein 7.0, Albumin 3.8, Globulin 3.2, Albumin/Globulin Ratio 1.2 I & O for Last 24 hours: Intake & Output 05/03/23 05/04/23 05/05/23 05/06/23 11:59 11:59 11:59 11:59 Intake Total 640 / 640 960 / 960 1190 / 1190 Output Total 1325 / 1325 2450 / 2450 375 / 375 Balance -685 / -685 -1490 / -1490 815 / 815 Weight 210 lb 9 oz 217 lb 0.016 oz 217 lb 0.016 oz Microbiology Reports for the Last 24 Hours: Microbiology 05/04/23 09:16 Sputum - Expectorated Sputum Gram Stain - Final Constitutional Constitutional: no acute distress *Routine Respiratory Exam Respiratory: Present wheezes *Routine Cardiovascular Exam Cardiovascular: Present RRR and gallop; Absent murmur or rubs *Routine Extremities Exam Extremities: Absent edema Progress Note: A&P Assessment and plan (1) Non-ST elevation [place] (NSTEMI): Status: Acute (2) Heart failure with reduced ejection fraction: Status: Acute (3) Left bundle branch block (LBBB): Status: Acute (4) Hypokalemia: Status: Acute (5) Hypertension: Status: Acute (6) Very heavy cigarette smoker (40 or more per day): Status: Acute Assessment and Plan Assessment and Plan for All Diagnoses:: 1. HFrEF -Patient has been started on GDMT -echocardiogram 15% -[facility] yesterday, mild luminal irregularities, EF 20%, LVEDP 30 mm nikita 2. Left bundle branch block, chronicity unknown -No history of syncope noted 3. Elevated troponin/non-STEMI, likely secondary to CHF -Continue aspirin 81 mg daily along with carvedilol therapy -Currently asymptomatic 4. Hypertension -Improved on combination of Entresto and carvedilol 5. Hyperlipidemia, LDL 137 -Started on statin therapy 6. Abnormal chest x-ray -Possible infiltrate for which he is on doxycycline Clinically stable for discharge home from cardiology standpoint. LifeVest will be fitted prior to discharge today. Home medication recommendations: Aspirin 81 mg daily Lipitor 40 mg daily Carvedilol 6.25 mg twice daily Jardiance 10 mg daily Entresto 24/26 mg twice daily Lasix 40 mg daily as needed Aldactone 25 mg daily Protonix 40 mg daily Follow-up in our office in 1 week or sooner if needed.
--- NOTE | 2023-05-06 10:33 | P.DS_ITS ---
General Admission date:: 05/03/23 Discharge date: 05/06/23 HPI HPI HPI: This is a 57-year-old man with significant PMHx of HTN, HLD, chronic smoker with greater than 3packs per days who presented today with shortness of breath. Patient initially though was cold. However, he decided to come after he feels sicker snd very fatigued and short of breath, that could not tolerating being flat in bed. Reported that shortness of breath has been ongoing for several months. Additionally he has had chest pain and pressure over the last few weeks, that radiated to his neck, that started after sex and last all night long. After this, he reported exertional dyspnea and CP that release on rest. He denies any fevers or chills. Denies any significant increase in sputum production does have some wheezing but that is chronic. No significant increase in lower extremity edema however he does have significant worsening shortness of breath at night. Admitted for further wotk up and management. Hospital Course Hospital Course Hospital Course: 57-year-old man with significant PMHx of HTN, HLD, chronic smoker with greater than 3packs per day who presented today with shortness of breath. Patient initially though was cold. However, he decided to come after he feels sicker and very fatigued and short of breath, that could not tolerating being flat in bed. furthermore started with Chest pain that appears on exertion and release on rest. On arrival patient hemodinamically stable. Hypertensive. denies chest pain. moderate SOB. CXR obtained. Concerning for pulmonary edema vs PNA. WBC slightly elevated. Chemistry slight hypokalemia. elevated troponin. EKG showed left BBB. no acute ischemia. ED provider performed bedside US and reduced EF is suspected. Findings discussed with ER for admission. Denies any chest pain, feeling better today. Continues to require inpatient management. Problems addressed as follows: - non-STEMI - Hypertension -Hyperlipidemia Cardiology consulted, going for left heart cath today. Echocardiogram obtained preliminarily showing reduced ejection fraction less than 25%. Will adjust regimen for goal-directed therapy. Initiate Entresto 24/26 mg twice daily, continue carvedilol 6.25 mg twice daily. Continue aspirin 81 mg daily, Lipitor 40 mg nightly. Continuous telemetry. Will need LifeVest prior to discharge home given reduced ejection fraction LDL elevated at 137 -Dyspnea, suspected heart failure with reduced ejection fraction versus COPD exacerbation Responded well to diuresis. Dyspnea improved. Continue doxycycline 100 mg twice daily for 5 days Initiate Advair 250 twice daily DuoNebs every 6 hours as needed White cell count normal today at 11 -Hypokalemia. Mild: Potassium and magnesium in normal range today. Will monitor with labs in the morning. CBC, CMP, magnesium ordered for tomorrow morning Meds on DC Aspirin 81 mg daily Lipitor 40 mg daily Carvedilol 6.25 mg twice daily Jardiance 10 mg daily Entresto 24/26 mg twice daily Lasix 40 mg daily as needed Aldactone 25 mg daily Protonix 40 mg daily Exam Data for Last 24 hours Vital signs and Labs for Last 24 Hours: Temp Pulse Resp BP Pulse Ox O2 Del Method 98.2 F 70 18 153/96 H 98 Room Air 05/06/23 07:35 05/06/23 08:00 05/06/23 07:35 05/06/23 07:35 05/06/23 07:35 05/06/23 09:00 Laboratory Results - last 24 hr 05/06/23 06:05: WBC 10.9 H, RBC 4.79, Hgb 15.0, Hct 44.4, MCV 92.8, MCH 31.4 H, MCHC 33.9, RDW 13.1, Plt Count 425 H D, MPV 8.3, Neut % (Auto) 68.9, Lymph % (Auto) 23.8, Buchanan % (Auto) 5.1, Eos % (Auto) 1.9, Baso % (Auto) 0.3, Neut # (Auto) 7.5, Lymph # (Auto) 2.6, Buchanan # (Auto) 0.6, Eos # (Auto) 0.2, Baso # (Auto) 0.0, Sodium 140, Potassium 4.0, Chloride 108 H, Carbon Dioxide 25, Anion Gap 11.0, BUN 19, Creatinine 0.80, Estimated Creat Clear 145, Estimated GFR 100, Est GFR ( Amer) 121, Glucose 144 H, Calcium 8.9, Magnesium 2.1, Total Bilirubin 0.5, AST 25, ALT 24, Alkaline Phosphatase 75, Total Protein 7.0, Albumin 3.8, Globulin 3.2, Albumin/Globulin Ratio 1.2 I & O for Last 24 hours: Intake & Output 05/03/23 05/04/23 05/05/23 05/06/23 23:59 23:59 23:59 23:59 Intake Total 1600 / 1600 470 / 710 720 / 720 Output Total 3775 / 3775 375 / 375 0 / 0 Balance -2175 / -2175 95 / 335 720 / 720 Weight 98.94 kg 95.51 kg 98.43 kg 98.43 kg Microbiology Reports for the Last 24 Hours: Microbiology 05/04/23 09:16 Sputum - Expectorated Sputum Gram Stain - Final Constitutional Constitutional: no acute distress *Routine HEENT Exam Head: Present normocephalic Eye: Present EOMI and PERRL ENT: Present mucous membranes moist *Routine Neck Exam Neck: Present supple; Absent lymphadenopathy *Routine Respiratory Exam Respiratory: Present CTA bilaterally *Routine Cardiovascular Exam Cardiovascular: Present RRR *Routine Abdominal Exam Abdominal: Present soft and normoactive bowel sounds; Absent tenderness *Routine Extremities Exam Extremities: Absent cyanosis, clubbing or edema *Routine Skin Exam Skin: Present warm; Absent rash *Routine Neurological Exam Neurological: Present alert and oriented X3 Results Data Completed and Pending Labs on day of discharge: Labs from last 24 hours 05/06/23 06:05 WBC 10.9 H RBC 4.79 Hgb 15.0 Hct 44.4 MCV 92.8 MCH 31.4 H MCHC 33.9 RDW 13.1 Plt Count 425 H D MPV 8.3 Neut % (Auto) 68.9 Lymph % (Auto) 23.8 Buchanan % (Auto) 5.1 Eos % (Auto) 1.9 Baso % (Auto) 0.3 Neut # (Auto) 7.5 Lymph # (Auto) 2.6 Buchanan # (Auto) 0.6 Eos # (Auto) 0.2 Baso # (Auto) 0.0 Sodium 140 Potassium 4.0 Chloride 108 H Carbon Dioxide 25 Anion Gap 11.0 BUN 19 Creatinine 0.80 Estimated Creat Clear 145 Estimated GFR 100 Est GFR ( Amer) 121 Glucose 144 H Calcium 8.9 Magnesium 2.1 Total Bilirubin 0.5 AST 25 ALT 24 Alkaline Phosphatase 75 Total Protein 7.0 Albumin 3.8 Globulin 3.2 Albumin/Globulin Ratio 1.2 DS: Diagnosis Discharge Diagnosis (1) Non-ST elevation PR (NSTEMI): Status: Acute Code(s): I21.4 - Non-ST elevation (NSTEMI) myocardial infarction (2) Heart failure with reduced ejection fraction: Status: Acute Code(s): I50.20 - Unspecified systolic (congestive) heart failure (3) Left bundle branch block (LBBB): Status: Acute Code(s): I44.7 - Left bundle-branch block, unspecified (4) Hypokalemia: Status: Acute Code(s): E87.6 - Hypokalemia (5) Hypertension: Status: Acute Code(s): I10 - Essential (primary) hypertension Qualifiers: Hypertension type: unspecified Qualified Code(s): I10 - Essential (primary) hypertension (6) Very heavy cigarette smoker (40 or more per day): Status: Acute Code(s): F17.210 - Nicotine dependence, cigarettes, uncomplicated Meds Home Medications and Allergies Home Medications Medication Instructions Recorded Confirmed Type aspirin 81 mg tablet,delayed 81 mg PO DAILY 30 days #30 tabs 05/06/23 Rx release atorvastatin 40 mg tablet 40 mg PO HS 30 days #30 tabs 05/06/23 Rx carvedilol 6.25 mg tablet 6.25 mg PO BID 30 days #60 tabs 05/06/23 Rx empagliflozin 10 mg tablet 10 mg PO DAILY 30 days #30 tabs 05/06/23 Rx (Jardiance) furosemide 40 mg tablet 40 mg PO DAILY 30 days #30 tabs 05/06/23 Rx nicotine 21 mg/24 hr daily 21 mg transdermal DAILYP PRN 05/06/23 Rx transdermal patch Nicotine Cravings 30 days #30 ea pantoprazole 40 mg tablet,delayed 40 mg PO DAILY 14 days #14 tabs 05/06/23 Rx release sacubitril 24 mg-valsartan 26 mg 1 tab PO BID 30 days #60 tabs 05/06/23 Rx tablet (Entresto) spironolactone 25 mg tablet 25 mg PO DAILY 30 days #30 tabs 05/06/23 Rx New Prescriptions to Start Prescriptions: aspirin Arturo,Irfan atorvastatin Arturo,Irfan carvedilol Arturo,Irfan empagliflozin [Jardiance] Arturo,Irfan furosemide Arturo,Irfan nicotine Arturo,Irfan pantoprazole Arturo,Irfan sacubitril-valsartan [Entresto] Arturo,Irfan spironolactone Arturo,Irfan Allergies Allergy/AdvReac Type Severity Reaction Status Date / Time No Known Allergies Allergy Verified 05/03/23 21:29 Discharge Plan Disposition Patient Disposition: Home, Self-Care Condition: Good Discharge Order Discharge Orders: Discharge Order (Routine); Ordered 05/06/23 Ordered By: João Morris Follow up Plan Follow up with: Al Torre MD [Staff Physician] - 05/12/23 2:30 pm ProviderCody MD [Primary Care Provider] - 2 weeks Prescriptions/Medication Reconciliation: New furosemide 40 mg Tablet 40 mg PO DAILY 30 Days Qty: 30 0RF atorvastatin 40 mg Tablet 40 mg PO HS 30 Days Qty: 30 0RF carvedilol 6.25 mg Tablet 6.25 mg PO BID 30 Days Qty: 60 0RF aspirin 81 mg Tablet,Delayed Release (Dr/Ec) 81 mg PO DAILY 30 Days Qty: 30 0RF Jardiance 10 mg Tablet 10 mg PO DAILY 30 Days Qty: 30 0RF spironolactone 25 mg Tablet 25 mg PO DAILY 30 Days Qty: 30 0RF pantoprazole 40 mg Tablet,Delayed Release (Dr/Ec) 40 mg PO DAILY 14 Days Qty: 14 0RF nicotine 21 mg/24 hr Patch 24 Hour 21 mg transdermal DAILYP PRN (Reason: Nicotine Cravings) 30 Days Qty: 30 0RF Entresto 24-26 mg Tablet 1 tab PO BID 30 Days Qty: 60 0RF Discontinued lisinopril 20 mg Tablet 20 mg PO BID Problem Reconciliation Problems Reviewed?: Yes Patient Discharge Instructions ACTIVITY: Ambulate as tolerated DIET: low fat, low cholesterol Patient Instructions: DI for Heart Attack, DI for Heart Failure, DI for Cardiac Catheterization, DI for Surgical Site Infection, Smoking Resource: your quit plan Providers Primary Care Provider: Provider,Referral Admit Provider: Arjun Mohamud Attending Provider: Arjun Mohamud
--- NOTE | 2023-05-07 14:05 | CARE MANAGER ---
Contacted patient related to hospital discharge. He states he received his medications and is wearing his life vest. He denies questions or concerns. YESSY Alvarez
== END 2023-05-06 11:40 | disposition home or self-care (01) | DRG 281 ==
LOC: ER 22:33 → 2ND 05-04 00:34
PROVIDERS: Internal Medicine; Nurse Practitioner Family; Admitting Provider Internal Medicine Adolescent Medicine; Emergency Provider Student in an Organized Health Care Education/Training Program; Visit Provider Internal Medicine Adolescent Medicine
PROC: 4A023N7 Measurement of Cardiac Sampling and Pressure, Left Heart, Percutaneous Approach (ICD-10-PCS; principal; 2023-05-05 12:00)
DX: I21.4 Non-ST elevation (NSTEMI) myocardial infarction (principal); I50.20 Unspecified systolic (congestive) heart failure; J44.1 Chronic obstructive pulmonary disease with (acute) exacerbation; I11.0 Hypertensive heart disease with heart failure; E87.6 Hypokalemia; Z87.891 Personal history of nicotine dependence; I25.10 Atherosclerotic heart disease of native coronary artery without angina pectoris
CPT/HCPCS: 36415; 71045; 80053; 80061; 81001; 83036; 83735; 83880; 84443; 84484; 85025; 85610; 85730; 87070; 87205; 87636; 93005; 93306; 93458; 94640; 99152; 99291; C1725; C1769; J1644; Q9967

== ENCOUNTER 2023-05-13 15:12 | Outpatient (CLI) | payer SELFPAY ==
[2023-05-13 15:42] LABS: Basophils # 0.1 K/mm3 (0-0.2); Basophils % 0.6 % (0.1-2.0); Eosinophils # 0.1 K/mm3 (0.0-0.4); Hematocrit 47.1 % (42.0-52.0); Lymphocytes # 2.6 K/mm3 (0.7-4.5); Lymphocytes % 19.9 % (10-50); Mean Corpuscular HGB Conc 33.9 g/dL (31.8-35.4); Mean Corpuscular Hemoglobin 31.5 pg (27.0-31.2); Mean Corpuscular Volume 92.9 fl (80-94); Mean Platelet Volume 7.9 fl (7.4-10.4); Monocytes # 0.8 K/mm3 (0.1-1.0); Monocytes % 5.8 % (1.7-9.3); Neutrophils # 9.6 K/mm3 (1.8-7.8); Neutrophils % 72.8 % (37.0-80.0); Platelet Count 525 K/mm3 (142-424); Red Blood Count 5.07 M/mm3 (4.60-6.20); White Blood Count 13.2 K/mm3 (4.8-10.8)
[2023-05-13 16:14] LABS: Anion Gap 12.4 mEq/L (5-15); Blood Urea Nitrogen 20 mg/dl (9-20); Calcium 9.6 mg/dl (8.4-10.2); Carbon Dioxide 29 mmol/L (22.0-30.0); Chloride 102 mmol/L (98-107); Estimated Glomerular Filt Rate 88 ml/min (>60); GFR (African American) 106 ML/MIN (>60); Glucose 88 mg/dl (74-100); Potassium 4.4 mmoL/L (3.5-5.1); Sodium 139 mmol/L (136-145)
== END 2023-05-13 23:59 ==
LOC: LAB 15:18
PROVIDERS: Visit Provider Nurse Practitioner
DX: I50.20 Unspecified systolic (congestive) heart failure (principal)
CPT/HCPCS: 36415; 80048; 85025